=== PATIENT | male | born 1940 | race Caucasian/White ===

== ENCOUNTER 2021-03-19 13:05 | Observation (INO) ==
[2021-03-19 14:23] LABS: Basophils % 0.5 % (0.0-0.8); Eosinophils # 0.1 10*3/uL (0.0-0.87); Eosinophils % 0.9 % (0.00-10.9); Hematocrit 37.1 VOL% (42.0-52.0); Immature Granulocytes % 0.5 %; Immature Granulocytes Absolute 0.04 #; Lymphocytes % 11.1 % (21.2-54.2); Mean Corpuscular HGB Conc 32.3 GM/DL (32-36); Mean Corpuscular Volume 93.9 FL (87-102); Mean Platelet Volume 8.3 FL (9.6-12.0); Monocytes % 7.6 % (1.7-12.7); Neutrophils % 79.4 % (38.7-73.9); Platelet Count 438 T/CUMM (130-400); Red Blood Count 3.95 MC/CUMM (3.8-5.5); Red Cell Distribution Width 13.5 % (9.3-17.3); White Blood Count 8.8 T/CUMM (4-12)
[2021-03-19 14:39] LABS: Bacteria,Urine Occasional /HPF (Few); Bilirubin,Urine Negative (Negative); Blood, Urine Negative (Negative); Glucose,Urine (UA) Negative (Negative); Ketones,Urine 20 mg/dL (Negative); Mucus,Urine Occasional /LPF (Occasional); Nitrite,Urine Positive (Negative); Protein,Urine Negative; RBC,Urine 3 /HPF (0-4); Urine Appearance Slightly Hazy (Clear); Urine Color Yellow (Yellow); Urine Specific Gravity 1.016 (1.001-1.035); Urine Urobilinogen < 2.0 EU/DL (0.2-1.0)
[2021-03-19 14:51] LABS: Albumin 3.4 G/DL (3.4-5.0); Bilirubin,Total 0.4 MG/DL (0.20-1.00); Calcium 9.4 MG/DL (8.5-10.1); Potassium 3.8 MMOL/L (3.5-5.1); Total Protein 7.1 G/DL (6.4-8.2)
[2021-03-19 15:32] LABS: Sedimentation Rate-Westergren 40 MM/HR (0-20)
[2021-03-19] MEDS ORDERED: ONDANSETRON 4 MG/2 ML VIAL IV PRN (16:02)
[2021-03-19] MEDS ORDERED: ALBUTEROL 2.5 MG/3 ML NEB RESP TX PRN (16:02)
[2021-03-19] MEDS ORDERED: CALCIUM CARBONATE CHEW 500 MG TABLET PO PRN (16:02)
[2021-03-19] MEDS ORDERED: DOCUSATE SODIUM 100 MG CAPSULE PO PRN (16:02)
[2021-03-19] MEDS ORDERED: NICOTINE 21 MG/24 HR PATCH TRANSDERM PRN (16:02)
[2021-03-19] MEDS ORDERED: ZALEPLON 5 MG CAPSULE PO PRN (16:02)
[2021-03-19] MEDS ORDERED: ACETAMINOPHEN 325 MG TABLET PO PRN (16:02)
[2021-03-19] MEDS ORDERED: ENOXAPARIN 40 MG/0.4 ML SYRINGE SUBCUT SCH (16:30)
[2021-03-20 04:33] LABS: Basophils % 0.3 % (0.0-0.8); Eosinophils # 0.2 10*3/uL (0.0-0.87); Eosinophils % 1.7 % (0.00-10.9); Hematocrit 38.1 VOL% (42.0-52.0); Hemoglobin 12.7 GM/DL (14.0-18.0); Immature Granulocytes % 0.4 %; Immature Granulocytes Absolute 0.04 #; Lymphocytes # 0.9 10*3/uL (1.4-4.0); Lymphocytes % 8.8 % (21.2-54.2); Mean Corpuscular HGB Conc 33.3 GM/DL (32-36); Mean Corpuscular Volume 92.9 FL (87-102); Mean Platelet Volume 8.5 FL (9.6-12.0); Monocytes % 9.1 % (1.7-12.7); Neutrophils % 79.7 % (38.7-73.9); Platelet Count 433 T/CUMM (130-400); Red Cell Distribution Width 13.5 % (9.3-17.3); White Blood Count 9.6 T/CUMM (4-12)
[2021-03-20 04:50] LABS: Potassium 4.4 MMOL/L (3.5-5.1)
[2021-03-20] MEDS ORDERED: ASPIRIN EC 81 MG TABLET PO SCH (09:00)
[2021-03-20] MEDS ORDERED: DOCUSATE SODIUM 100 MG CAPSULE PO SCH (09:00)
[2021-03-20] MEDS ORDERED: ENZALUTAMIDE 40 MG PO SCH (09:00)
[2021-03-20] MEDS ORDERED: amLODIPine 5 MG TABLET PO SCH (09:00)
[2021-03-20] MEDS ORDERED: DOXAZOSIN 4 MG TABLET PO SCH (09:00)
[2021-03-20] MEDS ORDERED: CYANOCOBALAMIN 100 MCG TABLET PO SCH (09:00)
[2021-03-20] MEDS ORDERED: CIPROFLOXACIN 500 MG TABLET PO SCH (09:00)
[2021-03-20] MEDS ORDERED: PANTOPRAZOLE 40 MG TABLET PO SCH (09:00)
[2021-03-20] MEDS ORDERED: CALCIUM (CARBONATE) 500 MG TABLET PO SCH (09:00)
[2021-03-20] MEDS ORDERED: MULTIVITAMIN (CENTRUM) TABLET PO SCH (09:00)
[2021-03-20 10:05] VITALS: BP 170/90
== END 2021-03-20 10:00 | disposition home or self-care (01) ==
LOC: N.ED 13:05 → N.EDINP 13:05 → N.2W 16:25
PROVIDERS: ADMIT Internal Medicine Geriatric Medicine; ATTEND Internal Medicine Geriatric Medicine

== ENCOUNTER 2021-04-28 05:46 | Inpatient (IN) ==
[2021-04-28] MEDS ORDERED: GABAPENTIN 400 MG CAPSULE PO ONE (06:19)
[2021-04-28] MEDS ORDERED: FAMOTIDINE 20 MG TABLET PO ONE (06:19)
[2021-04-28] MEDS ORDERED: ACETAMINOPHEN 500 MG TABLET PO ONE (06:19)
[2021-04-28] MEDS ORDERED: TISSUE ADHESIVE 1 EACH APPLICATOR TOP ONE (06:20)
[2021-04-28] MEDS ORDERED: LIDOCAINE 1%/EPI INJ 20 ML VIAL ONE (06:20)
[2021-04-28] MEDS ORDERED: BUPIVACAINE MPF 0.25% 30 ML VIAL ONE (06:20)
[2021-04-28] MEDS ORDERED: INDOCYANINE GREEN 25 MG VIAL IV ONE (06:21)
[2021-04-28] MEDS ORDERED: ONDANSETRON 4 MG/2 ML VIAL ONE (06:23)
[2021-04-28] MEDS ORDERED: KETAMINE 500 MG/10 ML VIAL ONE (06:23)
[2021-04-28] MEDS ORDERED: DEXMEDETOMIDINE 200 MCG/2 ML VIAL ONE (06:23)
[2021-04-28] MEDS ORDERED: ROCURONIUM 50 MG/5 ML VIAL IV ONE ×2 (06:23→10:25)
[2021-04-28] MEDS ORDERED: propofoL 200 MG/20 ML VIAL IV ONE (06:23)
[2021-04-28] MEDS ORDERED: SUCCINYLCHOLINE 200 MG/10 ML VIAL ONE (06:23)
[2021-04-28] MEDS ORDERED: DEXAMETHASONE 4 MG/1 ML VIAL ONE ×2 (06:23→06:28)
[2021-04-28] MEDS ORDERED: LIDOCAINE 2% 5 ML VIAL ONE (06:23)
[2021-04-28] MEDS ORDERED: ALVIMOPAN 12 MG CAPSULE PO ONE (06:30)
[2021-04-28] MEDS ORDERED: ERTAPENEM 1,000 MG in SODIUM CHLORIDE 0.9% 100 ML IV ONE (06:30)
[2021-04-28] MEDS ORDERED: BUPIVACAINE 0.5% 50 ML VIAL ONE (06:30)
[2021-04-28] MEDS ORDERED: ALBUMIN 5% 25.0 GM/500 ML VIAL IV ONE (06:31)
[2021-04-28] MEDS ORDERED: DIAZEPAM 5 MG TABLET PO ONE (06:40)
[2021-04-28] MEDS ORDERED: ALBUTEROL 2.5 MG/3 ML NEB RESP TX ONE (06:42)
[2021-04-28] MEDS ORDERED: LACTATED RINGERS 1,000 ML IV SCH (07:00)
[2021-04-28] MEDS ORDERED: LABETALOL 20 MG/4 ML SYRINGE IV ONE (08:26)
[2021-04-28] MEDS ORDERED: PHENYLEPHRINE 1 MG/10 ML SYRINGE IV ONE (08:26)
[2021-04-28] MEDS ORDERED: NEOSTIGMINE 10 MG/10 ML VIAL ONE (10:20)
[2021-04-28] MEDS ORDERED: GLYCOPYRROLATE 0.4 MG/2 ML VIAL ONE (10:20)
[2021-04-28] MEDS ORDERED: LACTATED RINGERS 1,000 ML IV ONE (10:22)
[2021-04-28] MEDS ORDERED: SEVOFLURANE 1 UNIT/15 MINUTE INH ONE (10:31)
[2021-04-28 11:11] LABS: Bilirubin,Urine Negative (Negative); Blood, Urine Large mg/dL (Negative); Glucose,Urine (UA) Negative (Negative); Ketones,Urine Negative (Negative); Mucus,Urine Occasional /LPF (Occasional); Nitrite,Urine Negative (Negative); Protein,Urine 30 MG/DL; RBC,Urine 443 /HPF (0-4); Urine Appearance CLEAR (Clear); Urine Specific Gravity 1.006 (1.001-1.035)
[2021-04-28] MEDS ORDERED: ONDANSETRON 4 MG/2 ML VIAL IV PRN ×2 (11:12→11:52)
[2021-04-28] MEDS ORDERED: MEPERIDINE 25 MG/1 ML VIAL IV PRN (11:12)
[2021-04-28] MEDS ORDERED: HYDROmorphone 2 MG/1 ML VIAL IV PRN ×2 (11:12→11:52)
[2021-04-28] MEDS ORDERED: diphenhydrAMINE 50 MG/1 ML VIAL IV PRN (11:12)
[2021-04-28] MEDS ORDERED: PROMETHAZINE INJ 25 MG in SODIUM CHLORIDE 0.9% 50 ML IV PRN (11:12)
[2021-04-28 11:14] LABS: Urine Color Light Green (Yellow)
[2021-04-28] MEDS ORDERED: INFLUENZA VIRUS VACCINE 0.5 ML SYRINGE IM ONE (12:21)
[2021-04-28 12:34] LABS: Basophils % 0.2 % (0.0-0.8); Eosinophils % 0.1 % (0.00-10.9); Hemoglobin 10.7 GM/DL (14.0-18.0); Immature Granulocytes % 0.5 %; Immature Granulocytes Absolute 0.07 #; Lymphocytes # 0.6 10*3/uL (1.4-4.0); Lymphocytes % 4.1 % (21.2-54.2); Mean Corpuscular HGB Conc 31.5 GM/DL (32-36); Mean Platelet Volume 8.3 FL (9.6-12.0); Monocytes % 1.5 % (1.7-12.7); Neutrophils % 93.6 % (38.7-73.9); Platelet Count 433 T/CUMM (130-400); Red Blood Count 3.54 MC/CUMM (3.8-5.5); White Blood Count 13.8 T/CUMM (4-12)
[2021-04-28] MEDS: LACTATED RINGERS 1,000 ML IV SCH (12:38)
[2021-04-28] MEDS: KETOROLAC 15 MG/1 ML VIAL IV SCH ×2 (12:39→18:02)
[2021-04-28 12:57] LABS: Band Neutrophils 1 % (0-10); Lymphocytes 3 % (20-55); Segmented Neutrophils 95 % (50-85); Total Cells Counted 100
[2021-04-28 12:58] LABS: Hypochromasia Slight; Platelet Estimate Normal; Stomatocytes Slight
[2021-04-28 13:00] LABS: Calcium 7.6 MG/DL (8.5-10.1); Osmolality,Calculated 282.4 MOS/KG (273-304)
[2021-04-28] MEDS ORDERED: DOXAZOSIN 4 MG TABLET PO SCH (21:00)
[2021-04-28] MEDS: ALVIMOPAN 12 MG CAPSULE PO SCH (21:37)
[2021-04-29] MEDS: KETOROLAC 15 MG/1 ML VIAL IV SCH ×2 (00:05→05:30)
[2021-04-29] MEDS: LACTATED RINGERS 1,000 ML IV SCH ×2 (02:00→11:52)
[2021-04-29] MEDS ORDERED: ENOXAPARIN 40 MG/0.4 ML SYRINGE SUBCUT SCH (05:00)
[2021-04-29 06:06] LABS: Basophils % 0.4 % (0.0-0.8); Eosinophils # 0.1 10*3/uL (0.0-0.87); Eosinophils % 0.9 % (0.00-10.9); Hematocrit 29.6 VOL% (42.0-52.0); Hemoglobin 9.2 GM/DL (14.0-18.0); Immature Granulocytes % 0.3 %; Immature Granulocytes Absolute 0.03 #; Lymphocytes # 1.6 10*3/uL (1.4-4.0); Lymphocytes % 16.3 % (21.2-54.2); Mean Corpuscular HGB Conc 31.1 GM/DL (32-36); Mean Corpuscular Volume 95.8 FL (87-102); Mean Platelet Volume 8.6 FL (9.6-12.0); Monocytes % 8.7 % (1.7-12.7); Neutrophils % 73.4 % (38.7-73.9); Platelet Count 387 T/CUMM (130-400); Red Blood Count 3.09 MC/CUMM (3.8-5.5); Red Cell Distribution Width 14.3 % (9.3-17.3); White Blood Count 9.5 T/CUMM (4-12)
[2021-04-29 06:24] LABS: Calcium 7.5 MG/DL (8.5-10.1); Osmolality,Calculated 279.4 MOS/KG (273-304); Potassium 3.9 MMOL/L (3.5-5.1)
[2021-04-29] MEDS ORDERED: CALCIUM (CARBONATE) 500 MG TABLET PO SCH (08:00)
[2021-04-29] MEDS ORDERED: amLODIPine 5 MG TABLET PO SCH (09:00)
[2021-04-29] MEDS ORDERED: SILODOSIN 8 MG CAPSULE PO SCH (09:00)
[2021-04-29] MEDS ORDERED: MULTIVITAMIN (CENTRUM) TABLET PO SCH (09:00)
[2021-04-29] MEDS ORDERED: DOCUSATE SODIUM 100 MG CAPSULE PO SCH (09:00)
[2021-04-29] MEDS ORDERED: NON-FORMULARY MEDICATION (Enzalutamide [Xtandi] 40 mg Capsule) PO SCH (09:00)
[2021-04-29] MEDS ORDERED: CYANOCOBALAMIN 500 MCG TABLET PO SCH (09:00)
[2021-04-29] MEDS: ALVIMOPAN 12 MG CAPSULE PO SCH (09:28)
[2021-04-29 11:54] VITALS: BP 117/63
== END 2021-04-29 12:28 | disposition home or self-care (01) | DRG 660 ==
LOC: N.SDSINP 05:46 → N.OR 05:46 → N.SDSINP 05:50 → N.3E 10:38
PROVIDERS: ADMIT Surgery; ATTEND Surgery